=== PATIENT | female | born 1980 | race Caucasian/White ===

== ENCOUNTER 2021-03-21 23:39 | Emergency (ER) | payer MEDICAID ==
--- NOTE | 2021-03-22 01:09 | EDM.PDOCBH ---
<Lupis Gibbons - Last Filed: 03/22/21 07:05> ED HPI GENERAL MEDICAL PROBLEM - General Chief Complaint: Drug or Alcohol Abuse Stated Complaint: EVAL [facility] Time Seen by Provider: 03/22/21 01:15 Source of Information: Reports: Patient, EMS - History of Present Illness INITIAL COMMENTS - FREE TEXT/NARRATIVE: Patient was brought in via EMS due to alcohol intoxication and [facility]--there was apparently a disagreement between patient and her aunt. She is intoxicated, tearful at time, repeatedly states she's embarressed about what she has done, repeatedly apologizes at everything. she states she drinks at least 1/5 vodka a day, starts when she gets up. she states several days ago she tried meth--smoked it otherwise denies any drug use. she s tates she has been to alcohol rehab once--had a seizure but never returned after that episode PMH--denies Meds--denies Allergies--morphine Tob--1 ppd EtOH--at least 1/5 day Drugs--methamphetamine Onset: Today Back Pain Score (Numeric/FACES): 10 - Related Data Allergies Allergy/AdvReac Type Severity Reaction Status Date / Time morphine Allergy Cannot Verified 03/21/21 23:56 Remember Home Meds: Home Meds *Oxy 0 mg PO ASDIRECTED 03/21/21 [History] Past Medical History Musculoskeletal History: Reports: Fracture Neurological History: Reports: Seizure, Other (See Below) Other Neuro History: seizure with withdrawal Psychiatric History: Reports: Addiction, Depression - Infectious Disease History Infectious Disease History: Reports: Novel Coronavirus Social & Family History - Tobacco Use Tobacco Use Status *Q: Current Every Day Tobacco User Years of Tobacco use: 20 Packs/Tins Daily: 0.2 - Alcohol Use Date of Last Drink: 03/21/21 ED ROS GENERAL - Review of Systems Review Of Systems: See Below Constitutional: Reports: Other (intoxicated) HEENT: Reports: No Symptoms Respiratory: Reports: No Symptoms Cardiovascular: Reports: No Symptoms Endocrine: Reports: No Symptoms GI/Abdominal: Reports: Nausea, Vomiting : Reports: No Symptoms Musculoskeletal: Reports: No Symptoms Skin: Reports: No Symptoms Neurological: Reports: No Symptoms Psychiatric: Reports: No Symptoms Hematologic/Lymphatic: Reports: No Symptoms Immunologic: Reports: No Symptoms ED EXAM, BEHAVIORAL HEALTH - Physical Exam Exam: See Below Exam Limited By: No Limitations General Appearance: Alert, No Apparent Distress Eye Exam: Bilateral Eye: EOMI, Normal Inspection Ears: Normal External Exam Nose: Normal Inspection Throat/Mouth: Normal Inspection, Normal Lips, Normal Voice, No Airway Compromise Head: Atraumatic, Normocephalic Neck: Normal Inspection, Supple, Full Range of Motion Respiratory/Chest: No Respiratory Distress, Lungs Clear, Normal Breath Sounds Cardiovascular: Normal Peripheral Pulses, Regular Rate, Rhythm, No Edema, No Murmur GI/Abdominal: Normal Bowel Sounds, Soft, Non-Tender (Female) Exam: Deferred Rectal (Female) Exam: Deferred Back Exam: Normal Inspection Extremities: Normal Inspection, Normal Range of Motion, No Pedal Edema Neurological: Alert Psychiatric: Alert, Normal Affect, Normal Cognition, Normal Mood, Oriented Skin Exam: Warm, Dry, Intact, Normal color COURSE, BEHAVIORAL HEALTH COMP - Course Medical Clearance: 03/22/21 04:38 patient is medically cleared for EtOH rehab but now awaiting clarification of COVID test status/requirements from facility. Patient had COVID approx 2 months ago thus is not a candidate for COVID swab as likely will return positive due to being within 90 day window of her positive test. She has had one of 2 doses of her COVID immunization. Additionally, no transportation is available until the morning. Patient with increasing anxiety/restless, will provide dose of ativan for this and her EtOH withdraw at this time 03/22/21 07:[address] over [address] Dr Mazariegos, YOSSI at change of shift/transfer of care. still awaiting for Jose Edu[facility] Ruiz to determine admission due to hx of COVID in last 90 days, incomplete immunization status Departure - Departure Disposition: DC/Tfer to Inpt Rehab Fac 62 Condition: Good Clinical Impression: Alcoholism, Methamphetamine abuse, Chronic pain syndrome - Discharge Information *PRESCRIPTION DRUG MONITORING PROGRAM REVIEWED*: Not Applicable *COPY OF PRESCRIPTION DRUG MONITORING REPORT IN PATIENT MYA: Not Applicable Instructions: Alcohol Abuse and Dependence Information, Adult, Methamphetamines Use Disorder Referrals: PCP,None [Primary Care Provider] - Forms: ED Department Discharge Care Plan Goals: Avoid abusing illicit substances and alcohol in the future. Consider chemical dependency treatment if problems persist. Sepsis Event Note (ED) - Evaluation Sepsis Screening Result: No Definite Risk <Ashvin Carbajal - Last Filed: 03/22/21 09:30> COURSE, BEHAVIORAL HEALTH COMP - Course Vital Signs: Last Vital Signs Temp 96.9 F 03/22/21 01:05 Pulse 93 03/22/21 01:05 Resp 18 03/22/21 01:05 BP 139/93 H 03/22/21 01:05 Pulse Ox 98 03/22/21 01:05 Orders, Labs, Meds: Active Orders 24 hr Category Date Time Status CORONAVIRUS COVID-19 RAPID [MOLEC] Stat Lab 03/22/21 01:50 Stop Req Isolation [COMM] Stat Oth 03/22/21 01:28 Ordered Laboratory Tests 03/22/21 03/22/21 Range/Units 01:27 01:41 Urine Opiates Screen Negative (NEGATIVE) Ur Oxycodone Screen Presumptive positive H (NEGATIVE) Urine Methadone Screen Negative (NEGATIVE) Ur Propoxyphene Screen Negative (NEGATIVE) Ur Barbiturates Screen Negative (NEGATIVE) Ur Tricyclics Screen Negative (NEGATIVE) Ur Phencyclidine Scrn Negative (NEGATIVE) Ur Amphetamine Screen Presumptive positive H (NEGATIVE) U Methamphetamines Scrn Presumptive positive H (NEGATIVE) Urine MDMA Screen Negative (NEGATIVE) U Benzodiazepines Scrn Negative (NEGATIVE) U Cocaine Metab Screen Negative (NEGATIVE) U Marijuana (THC) Screen Negative (NEGATIVE) Ethyl Alcohol 396 mg/dL Medications Discontinued Medications Generic Name Dose Route Start Last Admin Trade Name Freq PRN Reason Stop Dose Admin Famotidine 20 mg 03/22/21 00:53 03/22/21 01:24 Famotidine 20 Mg/2 Ml Sdv IVPUSH 03/22/21 00:54 20 mg ONETIME ONE Administration Multivitamins/Minerals 10 ml/ 1,013.2 mls @ 300 mls/hr 03/22/21 01:00 03/22/21 01:24 Thiamine HCl 100 mg/ Folic IV 300 mls/hr Acid 1 mg/ Magnesium Sulfate 1 ASDIRECTED DAVID Administration gm/ Sodium Chloride Lorazepam 1 mg 03/22/21 04:37 03/22/21 04:47 Lorazepam 2 Mg/Ml Sdv IVPUSH 03/22/21 04:38 1 mg ONETIME ONE Administration Ondansetron HCl 4 mg 03/22/21 00:52 03/22/21 01:24 Ondansetron 4 Mg/2 Ml Sdv IVPUSH 03/22/21 00:53 4 mg ONETIME ONE Administration Ondansetron HCl 4 mg 03/22/21 08:02 03/22/21 08:30 Ondansetron 4 Mg Tab.Dis PO 03/22/21 08:03 4 mg ONETIME ONE Administration Medical Clearance: 03/22/21 07:21 Patient care turned over from Dr. Gibbons pending placement out at [facility] but patient changed her mind and want to go home, her aunt agreed to come and pick her up. Departure - Departure Time of Disposition: 07:26 Sepsis Event Note (ED) - Focused Exam Vital Signs: Vital Signs Temp Pulse Resp BP Pulse Ox 03/22/21 01:05 96.9 F 93 18 139/93 H 98 03/22/21 00:00 107 H 20 148/95 H 97 03/21/21 23:59 98.0 F 107 H 20 148/95 H 97
[2021-03-22] MEDS: MVI, Adult with Vitamin K 10 ML, Thiamine 100 MG, Folic Acid 1 MG, Magnesium Sulfate 1 ... IV SCH ×5 (01:24)
[2021-03-22] MEDS: Ondansetron 4 MG/2 ML SDV IVPUSH ONE (01:24)
[2021-03-22] MEDS: Famotidine 20 MG/2 ML SDV IVPUSH ONE (01:24)
[2021-03-22] MEDS: LORazepam 2 MG/ML SDV IVPUSH ONE (04:47)
[2021-03-22] MEDS: Ondansetron 4 MG Tab.DIS PO ONE (08:30)
== END 2021-03-22 08:30 ==
LOC: JP.ED 23:39
DX: F10.229 Alcohol dependence with intoxication, unspecified (principal); F15.10 Other stimulant abuse, uncomplicated; G89.4 Chronic pain syndrome; M54.9 Dorsalgia, unspecified; Z72.0 Tobacco use; Z86.16 Personal history of COVID-19; Y90.8 Blood alcohol level of 240 mg/100 ml or more; Z88.5 Allergy status to narcotic agent
CPT/HCPCS: 36415; 80305; 80307; 96365; 96366; 96375; 99284; A9270; J2060; J2405; J3411; J3475; J3490; J7030